=== PATIENT | female | born 1955 | race Caucasian/White ===

== ENCOUNTER → 2024-04-04 14:13 | Outpatient (REF) | payer MEDICARE, OTHER, SELFPAY | LOC: MRI 3T 14:13 | PROVIDERS: FAMILY PHYSICIAN Nurse Practitioner Adult Health | DX: C10.8 Malignant neoplasm of overlapping sites of oropharynx (principal) | CPT/HCPCS: 70553; A9575 ==

== ENCOUNTER → 2024-04-20 15:34 | Outpatient (REF) | payer MEDICARE, OTHER, SELFPAY | LOC: RCS 15:34 | PROVIDERS: ATTENDING PHYSICIAN Nurse Practitioner Adult Health | DX: C10.9 Malignant neoplasm of oropharynx, unspecified (principal); I10 Essential (primary) hypertension | CPT/HCPCS: 93306 ==

== ENCOUNTER → 2024-08-25 15:15 | Outpatient (REF) | payer MEDICARE, OTHER, SELFPAY | LOC: MRI 3T 15:15 | PROVIDERS: ATTENDING PHYSICIAN Internal Medicine; FAMILY PHYSICIAN Nurse Practitioner Adult Health | DX: I63.9 Cerebral infarction, unspecified (principal) | CPT/HCPCS: 70553; A9575 ==

== ENCOUNTER → 2024-10-20 11:12 | Outpatient (REF) | payer MEDICARE, OTHER, SELFPAY | LOC: RAD 11:12 | PROVIDERS: ATTENDING PHYSICIAN Internal Medicine Cardiovascular Disease; FAMILY PHYSICIAN Nurse Practitioner Adult Health | DX: Z92.3 Personal history of irradiation (principal); I65.23 Occlusion and stenosis of bilateral carotid arteries | CPT/HCPCS: 93880 ==

== ENCOUNTER 2024-11-01 06:19 | Day surgery (SDC) | payer MEDICARE, SELFPAY | END 2024-11-01 10:09 | disposition home or self-care (01) | LOC: GI 06:19 | PROVIDERS: ATTENDING PHYSICIAN Internal Medicine Gastroenterology | DX: Z12.11 Encounter for screening for malignant neoplasm of colon (principal); R93.3 Abnormal findings on diagnostic imaging of other parts of digestive tract; K64.4 Residual hemorrhoidal skin tags; K64.8 Other hemorrhoids; K57.30 Diverticulosis of large intestine without perforation or abscess without bleeding; D12.2 Benign neoplasm of ascending colon; D12.3 Benign neoplasm of transverse colon; Z80.0 Family history of malignant neoplasm of digestive organs | CPT/HCPCS: 45385; 88305 ==

== ENCOUNTER 2024-12-06 06:39 | Day surgery (SDC) | payer MEDICARE, SELFPAY ==
[2024-12-06 12:43] VITALS: BP 155/76
[2024-12-06 12:46] VITALS: BMI 21.0
[2024-12-06 16:07] VITALS: BP 132/68
[2024-12-06 16:15] VITALS: BP 140/98
[2024-12-06 16:25] VITALS: BP 130/70
[2024-12-06 16:30] VITALS: BP 130/70
== END 2024-12-06 16:35 | disposition home or self-care (01) ==
LOC: SDS 06:39
PROVIDERS: ATTENDING PHYSICIAN Internal Medicine Gastroenterology
DX: K64.1 Second degree hemorrhoids (principal); D12.0 Benign neoplasm of cecum; D12.2 Benign neoplasm of ascending colon; D12.4 Benign neoplasm of descending colon
CPT/HCPCS: 45390; 45385; 88305

== ENCOUNTER → 2025-03-12 08:22 | Outpatient (REF) | payer MEDICARE, SELFPAY | LOC: RAD 08:22 | PROVIDERS: ATTENDING PHYSICIAN Physician Assistant; FAMILY PHYSICIAN Nurse Practitioner Adult Health | DX: R60.0 Localized edema (principal); T45.1X5A Adverse effect of antineoplastic and immunosuppressive drugs, initial encounter | CPT/HCPCS: 93971 ==

== ENCOUNTER 2025-08-14 06:25 | Day surgery (SDC) | payer MEDICARE, SELFPAY | END 2025-08-14 16:19 | disposition home or self-care (01) | LOC: GI 06:25 | PROVIDERS: ATTENDING PHYSICIAN Internal Medicine Gastroenterology | DX: Z12.11 Encounter for screening for malignant neoplasm of colon (principal); K64.8 Other hemorrhoids; D12.2 Benign neoplasm of ascending colon; D12.3 Benign neoplasm of transverse colon; K63.5 Polyp of colon; K62.1 Rectal polyp; Z86.0101 Personal history of adenomatous and serrated colon polyps | CPT/HCPCS: 45385; 45380; 88305 ==